=== PATIENT | male | born 2000 | race Caucasian/White ===

== ENCOUNTER 2024-07-10 17:44 | Emergency (ER) | payer OTHER, SELFPAY ==
--- NOTE | ~2024-07-10 | CT_ITS ---
CT abdomen pelvis w con Ordering provider: Dao Pickens MD History: 24 years Male with . Abdominal pain, nausea, constipation x1 day . Comparison: None. Technique: CT abdomen and pelvis with IV and without oral contrast. Automated exposure control and it erative reconstruction technique were employed. The dose-length product was 517.69 mGy-cm. 100 mL Omn ipaque 350 was given IV. Findings: VISUALIZED LOWER CHEST: Normal. UPPER ABDOMINAL ORGANS: Liver: Normal. Gallbladder: Normal. Spleen: Normal. Stomach/duodenum: Normal. Pancreas: Normal. Adrenals: Normal. Kidneys: Normal. PELVIC ORGANS: The bladder is normal. BOWEL AND MESENTERY: Colon: No evidence of diverticulitis. Fecal material is loaded in the colon. Normal appendix. Hyperde nse material seen in the appendix. Small Bowel: Normal. No obstruction. Peritoneum/mesentery: No free air or free fluid. No mesenteric lymphadenopathy. Small mesenteric lymp h nodes are noted. RETROPERITONEUM: Normal aorta. No retroperitoneal lymphadenopathy. MUSCULOSKELETAL: Superficial soft tissues: The superficial soft tissues are normal. Bones: Normal spine. IMPRESSION: 1. No evidence of appendicitis, diverticulitis or intestinal obstruction. 2. Constipation. Reviewed, dictated and finalized at location A.
--- OUTSIDE RECORDS SUMMARY | 2024-07-10 17:47 | XMS_ITS | Encounter Summary ---
Author Organization [facility] Address [address] [place] [address] Care Team Providers Care Healthcare Applications Analyst Name Role Phone Dolly Lima MD Primary Care Provider [phone] Encounter Details Date Type Department Care Team (Late st Contact Info) Description 05/14/2000 Outpatient Historical [facility] Pediatrics [address] [facility] [address] [address] Ip, Hector Holbrook MD NO ADDRESS ON FILE Social History Tobacco Use Types Packs/Day Years Used Date Smoking Tobacco: Never Assessed Sex and Gender Information Value Date Recorded Sex Assigned at Not on file Legal Sex Male 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
--- OUTSIDE RECORDS SUMMARY | 2024-07-10 17:47 | XMS_ITS | Encounter Summary ---
Author Organization [facility] Address [address] [place] [address] Care Team Providers Care Telegraph Installer Name Role Phone Dolly Lima MD Primary Care Provider [phone] Encounter Details Date Type Department Care Team (Late st Contact Info) Description 05/15/2006 Outpatient Historical [facility] Pediatrics [address] [address] [place] [address] [place] [address] Social History Tobacco Use Types Packs/Day Years Used Date Smoking Tobacco: Never Assessed Sex and Gender Information Value Date Recorded Sex Assigned at Not on file Legal Sex Male 3:12 AM MEDIA BUYER Gender Identity Not on file Sexual Orientation Not on file documented as of this encounter Plan of Treatment Not on file documented as of this encounter Visit Diagnoses Not on filedocumented in this encounter Care Teams Telegraph Installer Relationship Specialty Start Date End Date Dolly Lima MD PCP - General 01/26/03 documented as of this encounter
--- OUTSIDE RECORDS SUMMARY | 2024-07-10 17:47 | XMS_ITS | Encounter Summary ---
Author Organization [facility] Address [address] [place] [address] Care Team Providers Care Switch House Operator Name Role Phone Dolly Lima MD Primary Care Provider [phone] Encounter Details Date Type Department Care Team (Late st Contact Info) Description 03/12/2001 Outpatient Historical [facility] Pediatrics 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
--- OUTSIDE RECORDS SUMMARY | 2024-07-10 17:47 | XMS_ITS | Encounter Summary ---
Author Organization [facility] Address [address] [place] [address] Care Team Providers Care Provider Engagement Executive Name Role Phone Dolly Lima MD Primary Care Provider [phone] Encounter Details Date Type Department Care Team (Late st Contact Info) Description 07/02/2002 Outpatient Historical [facility] Pediatric[facility] 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
--- OUTSIDE RECORDS SUMMARY | 2024-07-10 17:47 | XMS_ITS | Encounter Summary ---
Author Organization [facility] Address [address] [place] [address] Care Team Providers Care Technical Support Internship Name Role Phone Dolly Lima MD Primary Care Provider [phone] Encounter Details Date Type Department Care Team (Late st Contact Info) Description 06/06/2001 Outpatient Historical [facility] Pediatrics 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
--- OUTSIDE RECORDS SUMMARY | 2024-07-10 17:47 | XMS_ITS | Encounter Summary ---
Author Organization [facility] Address [address] [place] [address] Care Team Providers Care Cmo & President Name Role Phone Dolly Lima MD Primary Care Provider [phone] Encounter Details Date Type Department Care Team (Late st Contact Info) Description 1999 Outpatient Historical [facility] Pediatrics 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
--- OUTSIDE RECORDS SUMMARY | 2024-07-10 17:47 | XMS_ITS | Clinical Summary ---
Author Organization [address] Address [address] [place] [address] Care Team Providers Care Import Clerk Name Role Phone Dolly Lima MD Primary Care Provider [phone] Allergies No known active allergies Medications fexofenadine (POLO) 180 mg Oral tablet 1 Tab daily. Ac tive mometasone (NASONEX) 50 mcg/actuation Alsen, Non-Aerosol Administer 1 Alsen in each nostril 2 times daily Please keep script on file; parents will call if and when they need to fill. Script expires in one year if not used.. 17 Gram 3 6 Active VENTOLIN HFA 90 mcg/actuation inhaler INHALE TWO PUFFS BY MOUTH EVERY 4 HOURS NEEDED FOR WHEEZING, FOR SHORTNESS OF BREATH, OR COUGH 8.5 Gram 0 6 Active Hospital, Clinic, or Other Facility Administered Medication Ordered Dose Route Frequency Start Date End Date Status ipratropium bromide (ATROVENT) 0.02 % nebulizer solution 0.5 mgIndications:Asth ma, mild intermittent, with acute exacerbation 0.5 mg Inhalation ONE TIME ONLY RESPIRATORY 07/27/2013 Active albuterol (PROVENTIL,VENTOLI N) 5 mg/mL inhalation solution 5 mgIndications:Asth ma, mild intermittent, with acute exacerbation 5 mg Inhalation ONE TIME ONLY RESPIRATORY 07/27/2013 Active Active Problems Patient Care Coordination No te Formatting of this note migh t be different from the original. 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 Also sensitive to maple, elm; grasses, weeds including ragweed, cats (moderate) and dog (mild). Negative to molds, cockroaches and dustmites. LCK 10/2014 Mild intermittent asthma 01/04/2011 Overview (11/11/2014): ImmunoCAP showed severe sensitization towards tree pollens in particular oak, birch, white hickory and walnut tree pollen. Also sensitive to maple, elm; grasses, weeds including ragweed, cats (moderate) and dog (mild). Negative to molds, cockroaches and dustmites. LCK 10/2014 Attention deficit disorder with hyperactivity(31 4.01) 10/05/2009 Overview (10/05/2009): ++ enenrgy, rushes, lack focus, +++ go, impulsive OCD= anger, frustration, need for order, controlling, focus on rules, recalls++++ detail Title I read= no improvement Current FACULTY I ON CALL MEDICAL ASSISTANT Piper Leonardoy selvin Tillman PhD at 6yr 10mg= adjustment do [employer] Child [employer] 2nd gr= central auditory processing do Resolved Problems Problem Noted Date Diagnosed Date Resolved Date Acne 11/09/2014 06/30/2015 Angular cheilitis 11/09/2014 06/30/2015 Overview (11/09/2014): While on isotretinoin (accutane). Immunizations Immunization Administration Dates Next Due (ADACEL/BOOSTRIX)(10 YR UP) TDAP VACCINE, 0.5ML, IM 10/26/2010 (BEXSERO)(10-25 YR) MENINGOC OCCAL RECOMBIANT PROTEIN AND OUTER MEMBRANE VESICLE VACCINE, SEROGROUP B MENB-4C, 2 DOSE IM 11/02/2015 (GARDASIL 9)(9-45 YRS) HUMAN PAPILLOMAVIRUS VACCINE, TYPES 6, 11, 16, 18, 31, 33, 45, 52, 58, NONAVALENT (9VHPV), 2 OR 3 DOSE, IM 11/02/2015 (GARDASIL)(9-45 YRS) HUMAN PAPILLOMAVIRUS VACCINE, TYPES 6, 11, 16, 18, QUADRIVALENT (4VHPV), 3 DOSE, IM 10/28/2014,10/01/2013 (HAVRIX/VAQTA)(12 MO-18 YRS) HEPATITIS A VACCINE 0.5 ML PED/ADOL 2 DOSE, IM 11/02/2015,10/28/2014 (INFANRIX)(6 WKS-6 YRS) DIPT HERIA, TETANUS TOXOIDS, AND ACCELLULAR PERTUSSIS VACCINE (DTAP), 0.5 ML IM 08/21/2004,06/14/2000,1999,07/18,1999 (IPOL)(6 WKS AND UP) POLIOVI FERMIN VACCINE, INACTIVATED (IPV), 3 DOSE, SUBCUT OR IM 08/21/2004,1999,1999,05/16 (M-M-R II/PRIORIX)(12 MO UP) MEASLES, MUMPS AND RUBELLA VIRUS VACCINE, 0.5 ML IM/SUBCUT 08/21/2004,04/08/2000 (VARIVAX)(12 MOS UP)VARICELL A VIRUS VACCINE (PF) 0.5 ML, SUB CUT 11/03/2012,04/08/2000 HIB, Unspecified Formulation 06/14/2000, 1999,1999,05/16 Hepatitis B Vaccine 1999,1999,1999 History of Chickenpox 01/09/2010 INFLUENZA VACCINE QUADRIVALE NT 3 YR UP PF IM 12/22/2014 Influenza Vaccine Split 3+ Yrs IM 01/04/2011 Meningococcal A Conjugate Vaccine IM 11/02/2015, 11/03/2012 Pneumococcal conjugate, unsp ecified formulation 06/14/2000,1999,1999 Family History Medical History Relation Name Comments Heart Disease Maternal Grandfather High Cholesterol Maternal Grandfather Hypertension Maternal Grandfather Lung Cancer Maternal Grandfather d; former smoker Asthma Maternal Grandmother Healthy Maternal Grandmother Allergic Rhinitis Mother Asthma Mother exercise Hypertension Paternal Grandmother COPD Neg Hx Chronic Sinusitis Neg Hx Cystic Fibrosis Neg Hx Eczema Neg Hx Immunodeficiency Neg Hx Relation Name Status Comments Brother Other Father Other Maternal Grandfather Maternal Grandmother Alive Mother Other Paternal Grandfather Other Paternal Grandmother Alive Sister Other Social History Tobacco Use Types Packs/Day Years Used Date Smoking Tobacco: Never Smokeless Tobacco: Never Alcohol Use Standard Drinks/Week Comments No 0 (1 standard drink = 0.6 oz pur e alcohol) Sex and Gender Information Value Date Recorded Sex Assigned at Not on file Legal Sex Male 3:[address] Gender Identity Not on file Sexual Orientation Not on file Occupation Industry Job Start Date Job End Date Not on file Not on file Not on file Not on file Last Filed Vital Signs Vital Sign Reading Time Taken Comments Blood Pressure 117/77 09/06/2016 10:19 AM CDT Pulse 69 09/06/2016 10:19 AM CDT Temperature 36.3 C (97.3 F) 09/06/2016 10:19 AM CDT Respiratory Rate 16 09/06/2016 10:19 AM CDT Oxygen Saturation 98% 09/06/2016 10:19 AM CDT Inhaled Oxygen Concentration - - Weight 70.8 kg (156 lb) 09/06/2016 10:19 AM CDT Height 180.3 cm (5' 11 ) 09/06/2016 10:19 AM CDT Body Mass Index 21.76 09/06/2016 10:19 AM CDT Plan of Treatment Health Maintenance Due Date Last Done Comments DTAP/TDAP/TD VACCINES (7 - T d or Tdap) 10/26/2020 10/26/2010, 08/21/2004, 06/14/2000, Additional history exists INFLUENZA VACCINE (#1) 2023 12/22/2014, 2010 HEPATITIS B VACCINES Completed 1999, 1999, 1999 HPV VACCINES Completed 11/02/2015, 10/16, 10/01/2013 Insurance xmom (Home) [address] BL[address] ACCESS/TRUE BLUE PPO BLUE ACCESS/TRUE BLUE PPO Care Teams Import Clerk Relationship Specialty Start Date End Date Dolly Lima MD PCP - General 01/26/03
--- OUTSIDE RECORDS SUMMARY | 2024-07-10 17:47 | XMS_ITS | Encounter Summary ---
Author Organization [facility] Address [address] [place] [address] Care Team Providers Care Can Sorter Name Role Phone Dolly Lima MD Primary Care Provider [phone] Encounter Details Date Type Department Care Team (Late st Contact Info) Description 08/08/2000 Outpatient Historical [facility] Pediatric[facility] 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
--- OUTSIDE RECORDS SUMMARY | 2024-07-10 17:47 | XMS_ITS | Encounter Summary ---
Author Organization [facility] Address [address] [place] [address] Care Team Providers Care Butcher Helper Name Role Phone Dolly Lima MD Primary Care Provider [phone] Encounter Details Date Type Department Care Team (Late st Contact Info) Description 1999 Outpatient Historical [facility] 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
--- OUTSIDE RECORDS SUMMARY | 2024-07-10 17:47 | XMS_ITS | Encounter Summary ---
Author Organization [facility] Address [address] [place] [address] Care Team Providers Care Quantitative Consultant Name Role Phone Dolly Lima MD Primary Care Provider [phone] Encounter Details Date Type Department Care Team (Late st Contact Info) Description 1999 Outpatient Historical [facility] 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
--- OUTSIDE RECORDS SUMMARY | 2024-07-10 17:47 | XMS_ITS | Encounter Summary ---
Author Organization [facility] Address [address] [place] [address] Care Team Providers Care Tmr Teacher Name Role Phone Dolly Lima MD Primary Care Provider [phone] Encounter Details Date Type Department Care Team (Late st Contact Info) Description 05/03/2004 Outpatient Historical [facility] Pediatrics 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
--- OUTSIDE RECORDS SUMMARY | 2024-07-10 17:47 | XMS_ITS | Encounter Summary ---
Author Organization [facility] Address [address] [place] [address] Care Team Providers Care Cytogeneticist Name Role Phone Dolly Lima MD Primary Care Provider [phone] Encounter Details Date Type Department Care Team (Late st Contact Info) Description 1999 Outpatient Historical [facility] Pediatrics 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
--- OUTSIDE RECORDS SUMMARY | 2024-07-10 17:47 | XMS_ITS | Encounter Summary ---
Author Organization [facility] Address [address] [place] [address] Care Team Providers Care Geospatial Extractor Analysis Name Role Phone Dolly Lima MD Primary Care Provider [phone] Encounter Details Date Type Department Care Team (Late st Contact Info) Description 05/17/2001 Outpatient Historical [facility] Pediatrics [address] [address] [place] [address] [place] [address] Social History Tobacco Use Types Packs/Day Years Used Date Smoking Tobacco: Never Assessed Sex and Gender Information Value Date Recorded Sex Assigned at Not on file Legal Sex Male 3:12 AM SALESPERSON BOOKS Gender Identity Not on file Sexual Orientation Not on file documented as of this encounter Plan of Treatment Not on file documented as of this encounter Visit Diagnoses Not on filedocumented in this encounter Care Teams Geospatial Extractor Analysis Relationship Specialty Start Date End Date Dolly Lima MD PCP - General 01/26/03 documented as of this encounter
--- OUTSIDE RECORDS SUMMARY | 2024-07-10 17:47 | XMS_ITS | Encounter Summary ---
Author Organization [facility] Address [address] [place] [address] Care Team Providers Care Group Cio Name Role Phone Dolly Lima MD Primary Care Provider [phone] Encounter Details Date Type Department Care Team (Late st Contact Info) Description 1999 Outpatient Historical [facility] 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
--- OUTSIDE RECORDS SUMMARY | 2024-07-10 17:47 | XMS_ITS | Encounter Summary ---
Author Organization [facility] Address [address] [place] [address] Care Team Providers Care Dealer Relationship Manager Name Role Phone Dolly Lima MD Primary Care Provider [phone] Encounter Details Date Type Department Care Team (Late st Contact Info) Description 02/13/2003 Outpatient Historical [facility] [address] [address] [place] [address] [place] [address] Social History Tobacco Use Types Packs/Day Years Used Date Smoking Tobacco: Never Assessed Sex and Gender Information Value Date Recorded Sex Assigned at Not on file Legal Sex Male 3:12 AM GEM SETTER Gender Identity Not on file Sexual Orientation Not on file documented as of this encounter Plan of Treatment Not on file documented as of this encounter Visit Diagnoses Not on filedocumented in this encounter Care Teams Dealer Relationship Manager Relationship Specialty Start Date End Date Dolly Lima MD PCP - General 01/26/03 documented as of this encounter
--- OUTSIDE RECORDS SUMMARY | 2024-07-10 17:47 | XMS_ITS | Encounter Summary ---
Author Organization [facility] Address [address] [place] [address] Care Team Providers Care Migratory Worker Name Role Phone Dolly Lima MD Primary Care Provider [phone] Encounter Details Date Type Department Care Team (Late st Contact Info) Description 12/09/2000 Outpatient Historical [facility] Pediatrics [address] [address] [address] Ip, Hector Holbrook MD NO ADDRESS ON FILE Social History Tobacco Use Types Packs/Day Years Used Date Smoking Tobacco: Never Assessed Sex and Gender Information Value Date Recorded Sex Assigned at Not on file Legal Sex Male 3:12 AM MARKETING DEVELOPMENT REPRESENTATIVE Gender Identity Not on file Sexual Orientation Not on file documented as of this encounter Plan of Treatment Not on file documented as of this encounter Visit Diagnoses Not on filedocumented in this encounter Care Teams Migratory Worker Relationship Specialty Start Date End Date Dolly Lima MD PCP - General 01/26/03 documented as of this encounter
--- OUTSIDE RECORDS SUMMARY | 2024-07-10 17:47 | XMS_ITS | Encounter Summary ---
Author Organization [facility] Address [address] [place] [address] Care Team Providers Care Wood Hacker Name Role Phone Dolly Lima MD Primary Care Provider [phone] Encounter Details Date Type Department Care Team (Late st Contact Info) Description 04/24/2000 Outpatient Historical [facility] Pediatrics [address] [address] [place] [address] [place] [address] Social History Tobacco Use Types Packs/Day Years Used Date Smoking Tobacco: Never Assessed Sex and Gender Information Value Date Recorded Sex Assigned at Not on file Legal Sex Male 3:12 AM TIRE RETREADER Gender Identity Not on file Sexual Orientation Not on file documented as of this encounter Plan of Treatment Not on file documented as of this encounter Visit Diagnoses Not on filedocumented in this encounter Care Teams Wood Hacker Relationship Specialty Start Date End Date Dolly Lima MD PCP - General 01/26/03 documented as of this encounter
--- OUTSIDE RECORDS SUMMARY | 2024-07-10 17:47 | XMS_ITS | Encounter Summary ---
Author Organization [facility] Address [address] [place] [address] Care Team Providers Care Hospital Coordinator Name Role Phone Dolly Lima MD Primary Care Provider [phone] Encounter Details Date Type Department Care Team (Late st Contact Info) Description 1999 Outpatient Historical [facility] Pediatrics [address] [address] [place] [address] [place] [address] Social History Tobacco Use Types Packs/Day Years Used Date Smoking Tobacco: Never Assessed Sex and Gender Information Value Date Recorded Sex Assigned at Not on file Legal Sex Male 3:12 AM PATTERN MARKING SUPERVISOR Gender Identity Not on file Sexual Orientation Not on file documented as of this encounter Plan of Treatment Not on file documented as of this encounter Visit Diagnoses Not on filedocumented in this encounter Care Teams Hospital Coordinator Relationship Specialty Start Date End Date Dolly Lima MD PCP - General 01/26/03 documented as of this encounter
--- OUTSIDE RECORDS SUMMARY | 2024-07-10 17:47 | XMS_ITS | Encounter Summary ---
Author Organization [facility] Address [address] [place] [address] Care Team Providers Care Television Servicer Name Role Phone Dolly Lima MD Primary Care Provider [phone] Encounter Details Date Type Department Care Team (Late st Contact Info) Description 1999 Outpatient Historical [facility] Pediatrics 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
--- OUTSIDE RECORDS SUMMARY | 2024-07-10 17:47 | XMS_ITS | Encounter Summary ---
Author Organization [facility] Address [address] [place] [address] Care Team Providers Care Ranch Hand Livestock Name Role Phone Dolly Lima MD Primary Care Provider [phone] Encounter Details Date Type Department Care Team (Latest Contact Info) Description 01/26/2003 Outpatient Historical [facility] [address] [place] [address] PAIN IN LIMB (Primary Dx) Social History Tobacco Use Types Packs/Day Years Used Date Smoking Tobacco: Never Assessed Sex and Gender Information Value Date Recorded Sex Assigned at Not on file Legal Sex Male 3:12 AM SUPERVISOR VARNISH Gender Identity Not on file Sexual Orientation Not on file documented as of this encounter Plan of Treatment Not on file documented as of this encounter Visit Diagnoses Diagnosis Pain in limb- Primary documented in this encounter Care Teams Ranch Hand Livestock Relationship Specialty Start Date End Date Dolly Lima MD PCP - General 01/26/03 documented as of this encounter
--- OUTSIDE RECORDS SUMMARY | 2024-07-10 17:47 | XMS_ITS | Encounter Summary ---
Author Organization [facility] Address [address] [place] [address] Care Team Providers Care Production Assembler Name Role Phone Dolly Lima MD Primary Care Provider [phone] Encounter Details Date Type Department Care Team (Late st Contact Info) Description 06/11/2002 Outpatient Historical [facility] Pediatrics [address] [address] Landen Marley MD NO ADDRESS ON FILE Social History Tobacco Use Types Packs/Day Years Used Date Smoking Tobacco: Never Assessed Sex and Gender Information Value Date Recorded Sex Assigned at Not on file Legal Sex Male 3:12 AM DRYWALL PROFESSIONAL Gender Identity Not on file Sexual Orientation Not on file documented as of this encounter Plan of Treatment Not on file documented as of this encounter Visit Diagnoses Not on filedocumented in this encounter Care Teams Production Assembler Relationship Specialty Start Date End Date Dolly Lima MD PCP - General 01/26/03 documented as of this encounter
--- OUTSIDE RECORDS SUMMARY | 2024-07-10 17:47 | XMS_ITS | Encounter Summary ---
Author Organization [facility] Address [address] [place] [address] Care Team Providers Care Breed To Wean Production Technician Name Role Phone Dolly Lima MD Primary Care Provider [phone] Encounter Details Date Type Department Care Team (Late st Contact Info) Description [address] [facility] Pediatrics 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
--- OUTSIDE RECORDS SUMMARY | 2024-07-10 17:47 | XMS_ITS | Encounter Summary ---
Author Organization [facility] Address [address] [place] [address] Care Team Providers Care Well Digger Name Role Phone Dolly Lima MD Primary Care Provider [phone] Encounter Details Date Type Department Care Team (Late st Contact Info) Description 03/20/2000 Outpatient Historical [facility] Pediatrics [address] [address] [place] [address] [place] [address] Social History Tobacco Use Types Packs/Day Years Used Date Smoking Tobacco: Never Assessed Sex and Gender Information Value Date Recorded Sex Assigned at Not on file Legal Sex Male 3:12 AM STABLEHAND Gender Identity Not on file Sexual Orientation Not on file documented as of this encounter Plan of Treatment Not on file documented as of this encounter Visit Diagnoses Not on filedocumented in this encounter Care Teams Well Digger Relationship Specialty Start Date End Date Dolly Lima MD PCP - General 01/26/03 documented as of this encounter
--- OUTSIDE RECORDS SUMMARY | 2024-07-10 17:47 | XMS_ITS | Encounter Summary ---
Author Organization [facility] Address [address] [place] [address] Care Team Providers Care Roof Cement And Paint Maker Helper Name Role Phone Dolly Lima MD Primary Care Provider [phone] Encounter Details Date Type Department Care Team (Late st Contact Info) Description 12/18/2004 Outpatient Historical [facility] Pediatrics 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
--- OUTSIDE RECORDS SUMMARY | 2024-07-10 17:47 | XMS_ITS | Encounter Summary ---
Author Organization [facility] Address [address] [place] [address] Care Team Providers Care Professor Of Finance Name Role Phone Dolly Lima MD Primary Care Provider [phone] Encounter Details Date Type Department Care Team (Late st Contact Info) Description 08/21/2004 Outpatient Historical [facility] Pediatrics [address] [address] [place] [address] [place] [address] Social History Tobacco Use Types Packs/Day Years Used Date Smoking Tobacco: Never Assessed Sex and Gender Information Value Date Recorded Sex Assigned at Not on file Legal Sex Male 3:12 AM OSTEOPATHIC RESIDENT Gender Identity Not on file Sexual Orientation Not on file documented as of this encounter Plan of Treatment Not on file documented as of this encounter Visit Diagnoses Not on filedocumented in this encounter Care Teams Professor Of Finance Relationship Specialty Start Date End Date Dolly Lima MD PCP - General 01/26/03 documented as of this encounter
--- OUTSIDE RECORDS SUMMARY | 2024-07-10 17:47 | XMS_ITS | Encounter Summary ---
Author Organization [facility] Address [address] [place] [address] Care Team Providers Care Egg Packer Name Role Phone Dolly Lima MD Primary Care Provider [phone] Encounter Details Date Type Department Care Team (Late st Contact Info) Description 09/13/2003 Outpatient Historical [facility] Pediatrics [address] [address] [place] [address] [place] [address] Social History Tobacco Use Types Packs/Day Years Used Date Smoking Tobacco: Never Assessed Sex and Gender Information Value Date Recorded Sex Assigned at Not on file Legal Sex Male 3:12 AM HUMANITIES AND LANGUAGES PROFESSOR Gender Identity Not on file Sexual Orientation Not on file documented as of this encounter Plan of Treatment Not on file documented as of this encounter Visit Diagnoses Not on filedocumented in this encounter Care Teams Egg Packer Relationship Specialty Start Date End Date Dolly Lima MD PCP - General 01/26/03 documented as of this encounter
--- OUTSIDE RECORDS SUMMARY | 2024-07-10 17:47 | XMS_ITS | Encounter Summary ---
Author Organization [facility] Address [address] [place] [address] Care Team Providers Care Cube Machine Tender Name Role Phone Dolly Lima MD Primary Care Provider [phone] Encounter Details Date Type Department Care Team (Late st Contact Info) Description 03/29/2005 Outpatient Historical [facility] Pediatrics [address] [address] [place] [address] [place] [address] Social History Tobacco Use Types Packs/Day Years Used Date Smoking Tobacco: Never Assessed Sex and Gender Information Value Date Recorded Sex Assigned at Not on file Legal Sex Male 3:12 AM COLOR TESTER Gender Identity Not on file Sexual Orientation Not on file documented as of this encounter Plan of Treatment Not on file documented as of this encounter Visit Diagnoses Not on filedocumented in this encounter Care Teams Cube Machine Tender Relationship Specialty Start Date End Date Dolly Lima MD PCP - General 01/26/03 documented as of this encounter
--- OUTSIDE RECORDS SUMMARY | 2024-07-10 17:47 | XMS_ITS | Encounter Summary ---
Author Organization [facility] Address [address] [place] [address] Care Team Providers Care Powder Line Repairer Name Role Phone Dolly Lima MD Primary Care Provider [phone] Encounter Details Date Type Department Care Team (Late st Contact Info) Description 1999 Outpatient Historical [facility] Pediatrics [address] [address] [place] [address] [place] [address] Social History Tobacco Use Types Packs/Day Years Used Date Smoking Tobacco: Never Assessed Sex and Gender Information Value Date Recorded Sex Assigned at Not on file Legal Sex Male 3:12 AM VP CUSTOMER DEVELOPMENT Gender Identity Not on file Sexual Orientation Not on file documented as of this encounter Plan of Treatment Not on file documented as of this encounter Visit Diagnoses Not on filedocumented in this encounter Care Teams Powder Line Repairer Relationship Specialty Start Date End Date Dolly Lima MD PCP - General 01/26/03 documented as of this encounter
--- OUTSIDE RECORDS SUMMARY | 2024-07-10 17:47 | XMS_ITS | Encounter Summary ---
Author Organization [facility] Address [address] [place] [address] Care Team Providers Care Rubber Attacher Name Role Phone Dolly Lima MD Primary Care Provider [phone] Encounter Details Date Type Department Care Team (Late st Contact Info) Description 04/17/2007 Outpatient Historical [facility] [address] [place] [address] [place] [address] [place] [address] Social History Tobacco Use Types Packs/Day Years Used Date Smoking Tobacco: Never Assessed Sex and Gender Information Value Date Recorded Sex Assigned at Not on file Legal Sex Male 3:12 AM CELL STRIPPER Gender Identity Not on file Sexual Orientation Not on file documented as of this encounter Plan of Treatment Not on file documented as of this encounter Visit Diagnoses Not on filedocumented in this encounter Care Teams Rubber Attacher Relationship Specialty Start Date End Date Dolly Lima MD PCP - General 01/26/03 documented as of this encounter
--- OUTSIDE RECORDS SUMMARY | 2024-07-10 17:47 | XMS_ITS | Encounter Summary ---
Author Organization [facility] Address [address] [place] [address] Care Team Providers Care Seafood And Service Meat Manager Name Role Phone Dolly Lima MD Primary Care Provider [phone] Encounter Details Date Type Department Care Team (Late st Contact Info) Description 07/07/2004 Outpatient Historical [facility] Pediatrics [address] [address] [place] [address] [place] [address] Social History Tobacco Use Types Packs/Day Years Used Date Smoking Tobacco: Never Assessed Sex and Gender Information Value Date Recorded Sex Assigned at Not on file Legal Sex Male 3:12 AM SPIRAL TUBE WINDER Gender Identity Not on file Sexual Orientation Not on file documented as of this encounter Plan of Treatment Not on file documented as of this encounter Visit Diagnoses Not on filedocumented in this encounter Care Teams Seafood And Service Meat Manager Relationship Specialty Start Date End Date Dolly Lima MD PCP - General 01/26/03 documented as of this encounter
--- OUTSIDE RECORDS SUMMARY | 2024-07-10 17:47 | XMS_ITS | Encounter Summary ---
Author Organization [facility] Address [address] [place] [address] Care Team Providers Care Physical Education Professor Name Role Phone Dolly Lima MD Primary Care Provider [phone] Encounter Details Date Type Department Care Team (Late st Contact Info) Description 11/29/2004 Outpatient Historical [facility] Pediatrics [address] [address] [place] [address] [place] [address] Social History Tobacco Use Types Packs/Day Years Used Date Smoking Tobacco: Never Assessed Sex and Gender Information Value Date Recorded Sex Assigned at Not on file Legal Sex Male 3:12 AM CARPENTER/LABOR Gender Identity Not on file Sexual Orientation Not on file documented as of this encounter Plan of Treatment Not on file documented as of this encounter Visit Diagnoses Not on filedocumented in this encounter Care Teams Physical Education Professor Relationship Specialty Start Date End Date Dolly Lima MD PCP - General 01/26/03 documented as of this encounter
--- OUTSIDE RECORDS SUMMARY | 2024-07-10 17:47 | XMS_ITS | Encounter Summary ---
Author Organization [facility] Address [address] [place] [address] Care Team Providers Care Preassembler Printed Circuit Board Name Role Phone Dolly Lima MD Primary Care Provider Encounter Details Date Type Department Care Team (Late st Contact Info) Description 01/26/2003 Outpatient Historical [facility] Pediatrics [address] [place] [address] [address] Landen Marley MD NO ADDRESS ON FILE Social History Tobacco Use Types Packs/Day Years Used Date Smoking Tobacco: Never Assessed Sex and Gender Information Value Date Recorded Sex Assigned at Not on file Legal Sex Male 3:12 AM MED PEDS Gender Identity Not on file Sexual Orientation Not on file documented as of this encounter Plan of Treatment Not on file documented as of this encounter Visit Diagnoses Not on filedocumented in this encounter Care Teams Preassembler Printed Circuit Board Relationship Specialty Start Date End Date Dolly Lima MD PCP - General 01/26/03 documented as of this encounter
--- OUTSIDE RECORDS SUMMARY | 2024-07-10 17:47 | XMS_ITS | Encounter Summary ---
Author Organization [facility] Address [address] [place] [address] Care Team Providers Care Service Promoter Salesperson Name Role Phone Dolly Lima MD Primary Care Provider [phone] Encounter Details Date Type Department Care Team (Late st Contact Info) Description 06/02/2001 Outpatient Historical [facility] Pediatrics [address] [address] [place] [address] [place] [address] Social History Tobacco Use Types Packs/Day Years Used Date Smoking Tobacco: Never Assessed Sex and Gender Information Value Date Recorded Sex Assigned at Not on file Legal Sex Male 3:12 AM APPLICATIONS SALES REPRESENTATIVE Gender Identity Not on file Sexual Orientation Not on file documented as of this encounter Plan of Treatment Not on file documented as of this encounter Visit Diagnoses Not on filedocumented in this encounter Care Teams Service Promoter Salesperson Relationship Specialty Start Date End Date Dolly Lima MD PCP - General 01/26/03 documented as of this encounter
--- OUTSIDE RECORDS SUMMARY | 2024-07-10 17:47 | XMS_ITS | Encounter Summary ---
Author Organization [facility] Address [address] [place] [address] Care Team Providers Care Mortgage Loan Closer Name Role Phone Dolly Lima MD Primary Care Provider [phone] Encounter Details Date Type Department Care Team (Late st Contact Info) Description 04/08/2000 Outpatient Historical [facility] Pediatrics [address] [address] [place] [address] [place] [address] Social History Tobacco Use Types Packs/Day Years Used Date Smoking Tobacco: Never Assessed Sex and Gender Information Value Date Recorded Sex Assigned at Not on file Legal Sex Male 3:12 AM SOLUTIONS ENGINEER Gender Identity Not on file Sexual Orientation Not on file documented as of this encounter Plan of Treatment Not on file documented as of this encounter Visit Diagnoses Not on filedocumented in this encounter Care Teams Mortgage Loan Closer Relationship Specialty Start Date End Date Dolly Lima MD PCP - General 01/26/03 documented as of this encounter
--- OUTSIDE RECORDS SUMMARY | 2024-07-10 17:47 | XMS_ITS | Encounter Summary ---
Author Organization [facility] Address [address] [place] [address] Care Team Providers Care Vegetable Sorter Name Role Phone Dolly Lima MD Primary Care Provider [phone] Encounter Details Date Type Department Care Team (Late st Contact Info) Description 10/31/2006 Outpatient Historical [facility] Pediatrics [address] [address] [place] [address] [place] [address] Social History Tobacco Use Types Packs/Day Years Used Date Smoking Tobacco: Never Assessed Sex and Gender Information Value Date Recorded Sex Assigned at Not on file Legal Sex Male 3:12 AM WASHER MACHINE Gender Identity Not on file Sexual Orientation Not on file documented as of this encounter Plan of Treatment Not on file documented as of this encounter Visit Diagnoses Not on filedocumented in this encounter Care Teams Vegetable Sorter Relationship Specialty Start Date End Date Dolly Lima MD PCP - General 01/26/03 documented as of this encounter
--- OUTSIDE RECORDS SUMMARY | 2024-07-10 17:47 | XMS_ITS | Encounter Summary ---
Author Organization [facility] Address [address] [place] [address] Care Team Providers Care Concession Attendant Name Role Phone Dolly Lima MD Primary Care Provider [phone] Encounter Details Date Type Department Care Team (Late st Contact Info) Description 1999 Outpatient Historical [facility] Pediatrics [address] [address] [place] [address] [place] [address] Social History Tobacco Use Types Packs/Day Years Used Date Smoking Tobacco: Never Assessed Sex and Gender Information Value Date Recorded Sex Assigned at Not on file Legal Sex Male 3:12 AM SOUP MIXER Gender Identity Not on file Sexual Orientation Not on file documented as of this encounter Plan of Treatment Not on file documented as of this encounter Visit Diagnoses Not on filedocumented in this encounter Care Teams Concession Attendant Relationship Specialty Start Date End Date Dolly Lima MD PCP - General 01/26/03 documented as of this encounter
--- OUTSIDE RECORDS SUMMARY | 2024-07-10 17:47 | XMS_ITS | Encounter Summary ---
Author Organization [facility] Address [address] [place] [address] Care Team Providers Care Evening Sitter Name Role Phone Dolly Lima MD Primary Care Provider Encounter Details Date Type Department Care Team (Late st Contact Info) Description 08/21/[address] [facility] Pediatrics [address] [address] [place] [address] [place] [address] Social History Tobacco Use Types Packs/Day Years Used Date Smoking Tobacco: Never Assessed Sex and Gender Information Value Date Recorded Sex Assigned at Not on file Legal Sex Male 3:12 AM COOLING PAN TENDER Gender Identity Not on file Sexual Orientation Not on file documented as of this encounter Plan of Treatment Not on file documented as of this encounter Visit Diagnoses Not on filedocumented in this encounter Care Teams Evening Sitter Relationship Specialty Start Date End Date Dolly Lima MD PCP - General 01/26/03 documented as of this encounter
--- OUTSIDE RECORDS SUMMARY | 2024-07-10 17:47 | XMS_ITS | Encounter Summary ---
Author Organization [facility] Address [address] [place] [address] Care Team Providers Care Estate Conservator Name Role Phone Dolly Lima MD Primary Care Provider [phone] Encounter Details Date Type Department Care Team (Late st Contact Info) Description 08/07/2003 Outpatient Historical [facility] Pediatrics [address] [address] Landen Marley MD NO ADDRESS ON FILE Social History Tobacco Use Types Packs/Day Years Used Date Smoking Tobacco: Never Assessed Sex and Gender Information Value Date Recorded Sex Assigned at Not on file Legal Sex Male 3:12 AM BILINGUAL SOCIAL WORKER Gender Identity Not on file Sexual Orientation Not on file documented as of this encounter Plan of Treatment Not on file documented as of this encounter Visit Diagnoses Not on filedocumented in this encounter Care Teams Estate Conservator Relationship Specialty Start Date End Date Dolly Lima MD PCP - General 01/26/03 documented as of this encounter
--- OUTSIDE RECORDS SUMMARY | 2024-07-10 17:47 | XMS_ITS | Encounter Summary ---
Author Organization [facility] Address [address] [place] [address] Care Team Providers Care Grain Elevator Man Name Role Phone Dolly Lima MD Primary Care Provider [phone] Encounter Details Date Type Department Care Team (Late st Contact Info) Description 06/14/2000 Outpatient Historical [facility] Pediatrics [address] [address] [place] [address] [place] [address] Social History Tobacco Use Types Packs/Day Years Used Date Smoking Tobacco: Never Assessed Sex and Gender Information Value Date Recorded Sex Assigned at Not on file Legal Sex Male 3:12 AM SWATCH CLERK Gender Identity Not on file Sexual Orientation Not on file documented as of this encounter Plan of Treatment Not on file documented as of this encounter Visit Diagnoses Not on filedocumented in this encounter Care Teams Grain Elevator Man Relationship Specialty Start Date End Date Dolly Lima MD PCP - General 01/26/03 documented as of this encounter
--- OUTSIDE RECORDS SUMMARY | 2024-07-10 17:47 | XMS_ITS | Encounter Summary ---
Author Organization [facility] Address [address] [place] [address] Care Team Providers Care Recreational Facilities Motel Manager Name Role Phone Dolly Lima MD Primary Care Provider Encounter Details Date Type Department Care Team (Late st Contact Info) Description 06/27/2001 Outpatient Historical [facility] Pediatrics [address] [address] [place] [address] [place] [address] Social History Tobacco Use Types Packs/Day Years Used Date Smoking Tobacco: Never Assessed Sex and Gender Information Value Date Recorded Sex Assigned at Not on file Legal Sex Male 3:12 AM DAIRY MANAGER Gender Identity Not on file Sexual Orientation Not on file documented as of this encounter Plan of Treatment Not on file documented as of this encounter Visit Diagnoses Not on filedocumented in this encounter Care Teams Recreational Facilities Motel Manager Relationship Specialty Start Date End Date Dolly Lima MD PCP - General 01/26/03 documented as of this encounter
--- OUTSIDE RECORDS SUMMARY | 2024-07-10 17:47 | XMS_ITS | Encounter Summary ---
Author Organization [facility] Address [address] [place] [address] Care Team Providers Care Shuttle Repairer Name Role Phone Dolly Lima MD Primary Care Provider [phone] Encounter Details Date Type Department Care Team (Latest Contact Info) Description 04/07/2007 Outpatient Historical [facility] [address] [place] [address] [place] [address] [place] [address] Central Hearing Loss Social History Tobacco Use Types Packs/Day Years Used Date Smoking Tobacco: Never Assessed Sex and Gender Information Value Date Recorded Sex Assigned at Not on file Legal Sex Male 3:12 AM APPARATUS OPERATOR Gender Identity Not on file Sexual Orientation Not on file documented as of this encounter Plan of Treatment Not on file documented as of this encounter Visit Diagnoses Diagnosis Central hearing loss documented in this encounter Care Teams Shuttle Repairer Relationship Specialty Start Date End Date Dolly Lima MD PCP - General 01/26/03 documented as of this encounter
[2024-07-10 17:50] VITALS: BP 122/83; PULSE 123; RESP 18; TEMP 36.6; O2SAT 97
--- NOTE | 2024-07-10 17:51 | ED_ITS ---
HPI - Abdominal Pain General Chief Complaint: Abdominal Pain Stated Complaint: abdominal pain Time Seen by Provider: 07/10/24 17:51 Source: patient Mode of arrival: ambulatory Limitations: no limitations History of Present Illness HPI narrative: Patient is a 24-year-old male with diffuse and more so upper abdomen abdominal pain for the past day. He has associated nausea without vomiting. He had a normal bowel movement yesterday and prior days. No BM today. Pain is a dull nagging constant pain. He has 6/10 pain. MD elicited complaint: abdominal pain Pertinent past history: none Onset (ago): day(s) ( One) Pain Consistency: constant Location: diffuse and epigastric Severity: moderate Pain scale (0-10): 6 Quality: fullness and dull Radiation: none Migration to: no migration Exacerbating factors: nothing Relieving factors: nothing Context: confirms other ( patient having nausea with abdominal pain for the past day) Associated symptoms: nausea Treatments prior to arrival: other ( none) Related Data Allergies Allergy/AdvReac Type Severity Reaction Status Date / Time No Known Allergies Allergy Mild Verified 02/09/09 16:49 Review of Systems 2 Review of Systems: All systems reviewed & are unremarkable except as noted in HPI and below Constitutional: Constitutional: Reports no additional constitutional complaints Eyes: Eyes: Reports no additional eye complaints ENT: Reports system reviewed and no additional complaints, except as documented Cardiovascular: Cardiovascular: Reports no additional cardiovascular complaints Respiratory: Respiratory: Reports no additional respiratory complaints Gastrointestinal: Gastrointestinal: Reports no additional gastrointestinal complaints Genitourinary: Genitourinary: Reports no additional male genitourinary complaints Musculoskeletal: Musculoskeletal: Reports no additional musculoskeletal complaints Integumentary/Breasts: Skin/Breast: Reports system reviewed and no additional complaints, except as docu Neurologic: Reports system reviewed and no additional complaints, except as documented Psychiatric: Psychiatric: Reports no additional psychiatric complaints Endocrine: Endocrine: Reports no additional endocrine complaints Hematologic/Lymphatic: Hematologic/Lymphatic: Reports no additional hematologic/lymphatic complaints Allergic/Immunologic: Allergic/Immunologic: Reports no additional allergic/immunologic complaints Exam 2 Const: General: healthy appearing Nutritional Appearance: well nourished Orientation/consciousness: patient oriented x3 Limitations: no limitations HENMT: Head: normal to inspection Ears: external ears normal F rehana/Nose/Sinus: Normal external nose present Eyes: Conjunctivae: conjunctivae normal Pupils: Equal, round and reactive pupils present EOM: EOMs intact bilaterally Neck: Neck: normal visual inspection Chest: Chest palpation & inspection: normal inspection of the chest Resp: Effort & Inspection: normal respiratory effort and not labored A uscultation: clear to auscultation bilaterally and no crackles Cardio: Rate: regular rate Rhythm: regular rhythm Heart sounds: no murmurs GI: Inspection: non-distended GI Palp: Yes Soft to palpation, Yes Tenderness to palpation present (GI) ( diffuse and upper epigastric area), Yes Guarding due to palpation present (GI), No Rigid due to palpation, No Hernia present, No Palpable mass present and No Rebound tenderness present A uscultation: normal bowel sounds : General: Yes bladder normal to palpation Back/Spine/Pelvis: Back: no CVA tenderness Skin: General skin exam: normal color Rashes: no rashes Wounds: no wounds Neuro: General: patient oriented x3 Cranial nerves: Yes Nystagmus not present Speech: normal speech Gait exam (Neuro): Normal gait present Extrem: General: normal to inspection Psych: Mental Status: mental status grossly normal Affect: normal affect Attitude: cooperative Course Vital Signs Vital signs: Vital Signs Temperature 36.6 C 07/10/24 17:50 Pulse Rate 123 H 07/10/24 17:50 Respiratory Rate 18 07/10/24 17:50 Blood Pressure 122/83 07/10/24 17:50 Pulse Oximetry 97 07/10/24 17:50 Oxygen Delivery Room Air 07/10/24 17:50 Temperature 36.6 C 07/10/24 17:50 Pulse Rate 100 07/10/24 19:07 Respiratory Rate 20 07/10/24 19:07 Blood Pressure 126/83 07/10/24 19:07 Pulse Oximetry 97 07/10/24 19:07 Oxygen Delivery Room Air 07/10/24 19:07 MDM - Abdominal Pain MDM Narrative Medical decision making narrative: patient is a 24-year-old male with nausea and abdominal pain for the past day. We will do GI workup at this time. Lab Data Attestation: I reviewed the patient's lab results. 07/10/24 18:13 07/10/24 18:13 Labs: Lab Results 07/10/24 Range/Units 18:13 WBC 6.8 (4.8-10.8) K/mm3 RBC 5.23 (4.70-6.10) M/mm3 Hgb 15.0 (14.0-18.0) g/dL Hct 45.9 (40.0-54.0) % MCV 87.8 (78.0-102.0) fL MCH 28.7 (27.0-31.0) pg MCHC 32.7 (32-36) g/dL RDW 12.1 (11.6-14.4) % Plt Count 201 (150-420) K/mm3 MPV 10.8 (8.7-11.0) fl Immature Gran % (Auto) Not Reportable Neut % (Auto) Not Reportable Lymph % (Auto) Not Reportable Swisher % (Auto) Not Reportable Eos % (Auto) Not Reportable Baso % (Auto) Not Reportable Lymph # (Auto) Not Reportable Swisher # (Auto) Not Reportable Eos # (Auto) Not Reportable Baso # (Auto) Not Reportable Abs Immat Gran (auto) Not Reportable Absolute Neuts (auto) Not Reportable Absolute Nucleated RBC Not Reportable Total Counted 100 Neutrophils % (Manual) 56 (46-73) % Band Neutrophils % 15 H (0-6) % Lymphocytes % (Manual) 18 (18-44) % Monocytes % (Manual) 11 H (3-9) % Eosinophils % (Manual) 0 L (1-6) % Basophils % (Manual) 0 (0-1) % Nucleated RBC % Not Reportable Abs Neuts (Manual) 4.82 (1.3-6.7) K/mm3 Abs Lymphs (Manual) 1.22 (1.1-4.5) K/mm3 Abs Monocytes (Manual) 0.74 (0.1-0.90) K/mm3 Absolute Eos (Manual) 0.00 L (0.02-0.50) K/mm3 Abs Basophils (Manual) 0.00 (0-0.1) K/mm3 Platelet Estimate Adequate (Adequate) Schistocytes Not Reportable Sodium 141 (136-145) mmol/L Potassium 3.5 (3.5-5.1) mmol/L Chloride 104 (98-108) mmol/L Carbon Dioxide 26 (21-32) mmol/L Anion Gap 11 (4-12) mmol/L BUN 18 (7-18) mg/dL Creatinine 1.34 H (0.70-1.30) mg/dL Estim Creat Clear Calc 83 ml/min Estimated GFR > 60 (59 - ) Glucose 98 (70-99) mg/dL Calculated Osmolality 293 (285-295) mOsm/kg Lactic Acid 0.9 (0.4-2.0) mmol/L Calcium 8.3 L (8.5-10.1) mg/dL Total Bilirubin 0.8 (0.00-1.00) mg/dL AST 20 (15-37) U/L ALT 35 (16-63) U/L Alkaline Phosphatase 66 (46-116) U/L Total Protein 7.4 (6.4-8.2) g/dL Albumin 3.7 (3.4-5.0) g/dL Lipase 28 (16-77) U/L Imaging Data Attestation: I personally reviewed and interpreted this imaging study as follows: Radiologist's impression: ITS Impressions Abdomen/Pelvis CT 07/10/24 19:08 IMPRESSION: 1. No evidence of appendicitis, diverticulitis or intestinal obstruction. 2. Constipation. Discharge Plan Discharge Clinical Impression: Constipation Qualifiers: Constipation type: unspecified constipation type Qualified Code(s): K59.00 - Constipation, unspecified Patient Disposition: Home Condition: Stable Instructions: Constipation (DC) Additional Instructions: please follow-up with the primary doctor in the next week. I suggest using MiraLax daily. I also suggest a magnesium citrate for acute constipation until resolution. It usually only takes a half a bottle to a full bottle to resolve constipation. Patient Language: Slovenian Follow-up/Referrals: Abundio Rizo MD [Primary Care Provider] - Time of Disposition: 19:22
--- NOTE | 2024-07-10 18:05 | PC.NURSE ---
dr wiley in with pt
--- OUTSIDE RECORDS SUMMARY | 2024-07-10 18:19 | XMS_ITS | Encounter Summary ---
Author Organization [facility] Address [address] [place] [address] Care Team Providers Care Loader Malt House Name Role Phone Dolly Lima MD Primary Care Provider [phone] Encounter Details Date Type Department Care Team (Late st Contact Info) Description 12/18/2004 Outpatient Historical [facility] Pediatrics 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
--- OUTSIDE RECORDS SUMMARY | 2024-07-10 18:19 | XMS_ITS | Encounter Summary ---
Author Organization [facility] Address [address] [place] [address] Care Team Providers Care Appliance Tester Name Role Phone Dolly Lima MD Primary Care Provider [phone] Encounter Details Date Type Department Care Team (Late st Contact Info) Description 03/29/2005 Outpatient Historical [facility] Pediatrics 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
--- OUTSIDE RECORDS SUMMARY | 2024-07-10 18:19 | XMS_ITS | Encounter Summary ---
Author Organization [facility] Address [address] [place] [address] Care Team Providers Care Tobacco Stripper Hand Name Role Phone Dolly Lima MD Primary Care Provider [phone] Encounter Details Date Type Department Care Team (Late st Contact Info) Description 08/21/2004 Outpatient Historical [facility] Pediatrics 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
--- OUTSIDE RECORDS SUMMARY | 2024-07-10 18:19 | XMS_ITS | Encounter Summary ---
Author Organization [facility] Address [address] [place] [address] Care Team Providers Care Closing Manager Name Role Phone Dolly Lima MD Primary Care Provider [phone] Encounter Details Date Type Department Care Team (Latest Contact Info) Description 04/07/2007 Outpatient Historical [facility] [address] 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
--- OUTSIDE RECORDS SUMMARY | 2024-07-10 18:19 | XMS_ITS | Encounter Summary ---
Author Organization [facility] Address [address] [place] [address] Care Team Providers Care Coding Manager Name Role Phone Dolly Lima MD Primary Care Provider Encounter Details Date Type Department Care Team (Late st Contact Info) Description 10/31/2006 Outpatient Historical [facility] Pediatrics 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
--- OUTSIDE RECORDS SUMMARY | 2024-07-10 18:19 | XMS_ITS | Encounter Summary ---
Author Organization [facility] Address [address] [place] [address] Care Team Providers Care Life Skills Coordinator Volunteer Name Role Phone Dolly Lima MD Primary Care Provider [phone] Encounter Details Date Type Department Care Team (Late st Contact Info) Description 05/03/2004 Outpatient Historical [facility] Pediatrics 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
--- OUTSIDE RECORDS SUMMARY | 2024-07-10 18:19 | XMS_ITS | Encounter Summary ---
Author Organization [facility] Address [address] [place] [address] Care Team Providers Care Interface Analyst Name Role Phone Dolly Lima MD Primary Care Provider [phone] Encounter Details Date Type Department Care Team (Late st Contact Info) Description 11/29/[address] [facility] Pediatrics 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
--- OUTSIDE RECORDS SUMMARY | 2024-07-10 18:19 | XMS_ITS | Encounter Summary ---
Author Organization [facility] Address [address] [place] [address] Care Team Providers Care Multiple Drill Operator Name Role Phone Dolly Lima MD Primary Care Provider [phone] Encounter Details Date Type Department Care Team (Late st Contact Info) Description 05/15/2006 Outpatient Historical [facility] Pediatrics 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
--- OUTSIDE RECORDS SUMMARY | 2024-07-10 18:19 | XMS_ITS | Encounter Summary ---
Author Organization [facility] Address [address] [place] [address] Care Team Providers Care Liquor Establishment Manager Name Role Phone Dolly Lima MD Primary Care Provider [phone] Encounter Details Date Type Department Care Team (Late st Contact Info) Description 08/21/2004 Outpatient Historical [facility] Pediatrics 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
--- OUTSIDE RECORDS SUMMARY | 2024-07-10 18:20 | XMS_ITS | Encounter Summary ---
Author Organization [facility] Address 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
--- OUTSIDE RECORDS SUMMARY | 2024-07-10 18:20 | XMS_ITS | Clinical Summary ---
Author Organization [address] Address [address] [facility] [place] [address] Care Team Providers Care Fine Patcher Name Role Phone Dolly Lima MD Primary Care Provider [phone] Allergies No known active allergies Medications fexofenadine (POLO) 180 mg Oral tablet 1 Tab daily. 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
--- OUTSIDE RECORDS SUMMARY | 2024-07-10 18:20 | XMS_ITS | Encounter Summary ---
Author Organization [facility] Address [address] [place] [address] Care Team Providers Care Steamblaster Name Role Phone Dolly Lima MD Primary Care Provider [phone] Encounter Details Date Type Department Care Team (Late st Contact Info) Description 06/11/2002 Outpatient Historical [facility] Pediatrics [address] [address] Landen Marley MD NO ADDRESS ON FILE Social History Tobacco Use Types Packs/Day Years Used Date Smoking Tobacco: Never Assessed Sex and Gender Information Value Date Recorded Sex Assigned at Not on file Legal Sex Male 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
--- OUTSIDE RECORDS SUMMARY | 2024-07-10 18:20 | XMS_ITS | Encounter Summary ---
Author Organization [facility] Address [address] [place] [address] Care Team Providers Care Ibm Websphere Portal Developer Name Role Phone Dolly Lima MD Primary Care Provider [phone] Encounter Details Date Type Department Care Team (Late st Contact Info) Description 04/17/2007 Outpatient Historical [facility] [address] 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
--- OUTSIDE RECORDS SUMMARY | 2024-07-10 18:20 | XMS_ITS | Encounter Summary ---
Author Organization [facility] Address [address] [place] [address] Care Team Providers Care Stress Engineer Name Role Phone Dolly Lima MD Primary Care Provider [phone] Encounter Details Date Type Department Care Team (Late st Contact Info) Description 04/08/2000 Outpatient Historical [facility] Pediatrics 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
--- OUTSIDE RECORDS SUMMARY | 2024-07-10 18:20 | XMS_ITS | Encounter Summary ---
Author Organization [facility] Address 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
--- OUTSIDE RECORDS SUMMARY | 2024-07-10 18:20 | XMS_ITS | Encounter Summary ---
Author Organization [facility] Address [address] [place] [address] Care Team Providers Care Program Manager Slp Name Role Phone Dolly Lima MD Primary Care Provider [phone] Encounter Details Date Type Department Care Team (Late st Contact Info) Description 1999 Outpatient Historical [facility] Pediatrics 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
--- OUTSIDE RECORDS SUMMARY | 2024-07-10 18:20 | XMS_ITS | Encounter Summary ---
Author Organization [facility] Address [address] [place] [address] Care Team Providers Care Music Educator Name Role Phone Dolly Lima MD Primary Care Provider Encounter Details Date Type Department Care Team (Late st Contact Info) Description 1999 Outpatient Historical [facility] Pediatrics [address] [address] [place] [address] [place] [address] Social History Tobacco Use Types Packs/Day Years Used Date Smoking Tobacco: Never Assessed Sex and Gender Information Value Date Recorded Sex Assigned at Not on file Legal Sex Male 3:12 AM FUSE MAKER Gender Identity Not on file Sexual Orientation Not on file documented as of this encounter Plan of Treatment Not on file documented as of this encounter Visit Diagnoses Not on filedocumented in this encounter Care Teams Music Educator Relationship Specialty Start Date End Date Dolly Lima MD PCP - General 01/26/03 documented as of this encounter
--- OUTSIDE RECORDS SUMMARY | 2024-07-10 18:20 | XMS_ITS | Encounter Summary ---
Author Organization [facility] Address [address] [place] [address] Care Team Providers Care Motor Coach Tour Operator Name Role Phone Dolly Lima MD Primary Care Provider [phone] Encounter Details Date Type Department Care Team (Late st Contact Info) Description 1999 Outpatient Historical [facility] Pediatrics 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
--- OUTSIDE RECORDS SUMMARY | 2024-07-10 18:20 | XMS_ITS | Encounter Summary ---
Author Organization [facility] Address [address] [place] [address] Care Team Providers Care Glove Examiner Name Role Phone Dolly Lima MD Primary Care Provider [phone] Encounter Details Date Type Department Care Team (Late st Contact Info) Description 02/13/2003 Outpatient Historical [facility] Pediatrics 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
--- OUTSIDE RECORDS SUMMARY | 2024-07-10 18:20 | XMS_ITS | Encounter Summary ---
Author Organization [facility] Address [address] [place] [address] Care Team Providers Care Spa Supervisor Name Role Phone Dolly Lima MD Primary Care Provider [phone] Encounter Details Date Type Department Care Team (Late st Contact Info) Description 1999 Outpatient Historical [facility] Pediatrics [address] [address] [place] [address] [place] [address] Social History Tobacco Use Types Packs/Day Years Used Date Smoking Tobacco: Never Assessed Sex and Gender Information Value Date Recorded Sex Assigned at Not on file Legal Sex Male 3:12 AM TOW MATE Gender Identity Not on file Sexual Orientation Not on file documented as of this encounter Plan of Treatment Not on file documented as of this encounter Visit Diagnoses Not on filedocumented in this encounter Care Teams Spa Supervisor Relationship Specialty Start Date End Date Dolly Lima MD PCP - General 01/26/03 documented as of this encounter
--- OUTSIDE RECORDS SUMMARY | 2024-07-10 18:20 | XMS_ITS | Encounter Summary ---
Author Organization [facility] Address [address] [place] [address] Care Team Providers Care Fisher Eel Spear Name Role Phone Dolly Lima MD Primary Care Provider [phone] Encounter Details Date Type Department Care Team (Latest Contact Info) Description 01/26/2003 Outpatient Historical [facility] [place] [address] [place] [address] PAIN IN LIMB (Primary Dx) Social History Tobacco Use Types Packs/Day Years Used Date Smoking Tobacco: Never Assessed Sex and Gender Information Value Date Recorded Sex Assigned at Not on file Legal Sex Male 3:12 AM APARTMENT RENTAL AGENT Gender Identity Not on file Sexual Orientation Not on file documented as of this encounter Plan of Treatment Not on file documented as of this encounter Visit Diagnoses Diagnosis Pain in limb- Primary documented in this encounter Care Teams Fisher Eel Spear Relationship Specialty Start Date End Date Dolly Lima MD PCP - General 01/26/03 documented as of this encounter
--- OUTSIDE RECORDS SUMMARY | 2024-07-10 18:20 | XMS_ITS | Encounter Summary ---
Author Organization [facility] Address [address] [place] [address] Care Team Providers Care Fur Repairer Name Role Phone Dolly Lima MD Primary Care Provider [phone] Encounter Details Date Type Department Care Team (Late st Contact Info) Description 06/14/2000 Outpatient Historical [facility] Pediatrics 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
--- OUTSIDE RECORDS SUMMARY | 2024-07-10 18:20 | XMS_ITS | Encounter Summary ---
Author Organization [facility] Address [address] [place] [address] Care Team Providers Care Chain Saw Operator Name Role Phone Dolly Lima MD Primary Care Provider [phone] Encounter Details Date Type Department Care Team (Late st Contact Info) Description 05/14/2000 Outpatient Historical [facility] Pediatrics [address] [address] Ip, Hector Holbrook MD NO ADDRESS ON FILE Social History Tobacco Use Types Packs/Day Years Used Date Smoking Tobacco: Never Assessed Sex and Gender Information Value Date Recorded Sex Assigned at Not on file Legal Sex Male 3:12 AM BOILER TUBE REAMER Gender Identity Not on file Sexual Orientation Not on file documented as of this encounter Plan of Treatment Not on file documented as of this encounter Visit Diagnoses Not on filedocumented in this encounter Care Teams Chain Saw Operator Relationship Specialty Start Date End Date Dolly Lima MD PCP - General 01/26/03 documented as of this encounter
--- OUTSIDE RECORDS SUMMARY | 2024-07-10 18:20 | XMS_ITS | Encounter Summary ---
Author Organization [facility] Address [address] [place] [address] Care Team Providers Care Train Driver Name Role Phone Dolly Lima MD Primary Care Provider [phone] Encounter Details Date Type Department Care Team (Late st Contact Info) Description 06/02/2001 Outpatient Historical [facility] Pediatrics 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
--- OUTSIDE RECORDS SUMMARY | 2024-07-10 18:20 | XMS_ITS | Encounter Summary ---
Author Organization [facility] Address [address] [place] [address] Care Team Providers Care Client Care Manager Name Role Phone Dolly Lima MD Primary Care Provider [phone] Encounter Details Date Type Department Care Team (Late st Contact Info) Description 07/07/2004 Outpatient Historical [facility] Pediatrics 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
--- OUTSIDE RECORDS SUMMARY | 2024-07-10 18:20 | XMS_ITS | Encounter Summary ---
Author Organization [facility] Address [address] [place] [address] Care Team Providers Care Stained Glass Window Designer Name Role Phone Dolly Lima MD Primary Care Provider [phone] Encounter Details Date Type Department Care Team (Late st Contact Info) Description 05/17/2001 Outpatient Historical [facility] Pediatrics [address] [address] [place] [address] [place] [address] Social History Tobacco Use Types Packs/Day Years Used Date Smoking Tobacco: Never Assessed Sex and Gender Information Value Date Recorded Sex Assigned at Not on file Legal Sex Male 3:12 AM BUILDING WRECKER Gender Identity Not on file Sexual Orientation Not on file documented as of this encounter Plan of Treatment Not on file documented as of this encounter Visit Diagnoses Not on filedocumented in this encounter Care Teams Stained Glass Window Designer Relationship Specialty Start Date End Date Dolly Lima MD PCP - General 01/26/03 documented as of this encounter
--- OUTSIDE RECORDS SUMMARY | 2024-07-10 18:20 | XMS_ITS | Encounter Summary ---
Author Organization [facility] Address [address] [place] [address] Care Team Providers Care Black Oxide Operator Name Role Phone Dolly Lima MD Primary Care Provider [phone] Encounter Details Date Type Department Care Team (Late st Contact Info) Description 1999 Outpatient Historical [facility] Pediatric[facility] [address] [address] [place] [address] [place] [address] Social History Tobacco Use Types Packs/Day Years Used Date Smoking Tobacco: Never Assessed Sex and Gender Information Value Date Recorded Sex Assigned at Not on file Legal Sex Male 3:12 AM LARRY CAR OPERATOR Gender Identity Not on file Sexual Orientation Not on file documented as of this encounter Plan of Treatment Not on file documented as of this encounter Visit Diagnoses Not on filedocumented in this encounter Care Teams Black Oxide Operator Relationship Specialty Start Date End Date Dolly Lima MD PCP - General 01/26/03 documented as of this encounter
--- OUTSIDE RECORDS SUMMARY | 2024-07-10 18:20 | XMS_ITS | Encounter Summary ---
Author Organization [facility] Address [address] [place] [address] Care Team Providers Care Cream Hauler Name Role Phone Dolly Lima MD Primary Care Provider [phone] Encounter Details Date Type Department Care Team (Late st Contact Info) Description 1999 Outpatient Historical [facility] Pediatrics [address] [address] [place] [address] [place] [address] Social History Tobacco Use Types Packs/Day Years Used Date Smoking Tobacco: Never Assessed Sex and Gender Information Value Date Recorded Sex Assigned at Not on file Legal Sex Male 3:12 AM DINING ROOM HOSTESS Gender Identity Not on file Sexual Orientation Not on file documented as of this encounter Plan of Treatment Not on file documented as of this encounter Visit Diagnoses Not on filedocumented in this encounter Care Teams Cream Hauler Relationship Specialty Start Date End Date Dolly Lima MD PCP - General 01/26/03 documented as of this encounter
--- OUTSIDE RECORDS SUMMARY | 2024-07-10 18:20 | XMS_ITS | Encounter Summary ---
Author Organization [facility] Address [address] [place] [address] Care Team Providers Care Ring Sewer Name Role Phone Dolly Lima MD Primary Care Provider [phone] Encounter Details Date Type Department Care Team (Late st Contact Info) Description 07/02/2002 Outpatient Historical [facility] Pediatrics [address] [address] [place] [address] [place] [address] Social History Tobacco Use Types Packs/Day Years Used Date Smoking Tobacco: Never Assessed Sex and Gender Information Value Date Recorded Sex Assigned at Not on file Legal Sex Male 3:12 AM BOTTOM PAINTER Gender Identity Not on file Sexual Orientation Not on file documented as of this encounter Plan of Treatment Not on file documented as of this encounter Visit Diagnoses Not on filedocumented in this encounter Care Teams Ring Sewer Relationship Specialty Start Date End Date Dolly Lima MD PCP - General 01/26/03 documented as of this encounter
--- OUTSIDE RECORDS SUMMARY | 2024-07-10 18:20 | XMS_ITS | Encounter Summary ---
Author Organization [facility] Address [address] [place] [address] Care Team Providers Care Wire Dropper Name Role Phone Dolly Lima MD Primary Care Provider [phone] Encounter Details Date Type Department Care Team (Late st Contact Info) Description 09/13/2003 Outpatient Historical [facility] Pediatrics [address] [address] [place] [address] [place] [address] Social History Tobacco Use Types Packs/Day Years Used Date Smoking Tobacco: Never Assessed Sex and Gender Information Value Date Recorded Sex Assigned at Not on file Legal Sex Male 3:12 AM DIP FILLER Gender Identity Not on file Sexual Orientation Not on file documented as of this encounter Plan of Treatment Not on file documented as of this encounter Visit Diagnoses Not on filedocumented in this encounter Care Teams Wire Dropper Relationship Specialty Start Date End Date Dolly Lima MD PCP - General 01/26/03 documented as of this encounter
--- OUTSIDE RECORDS SUMMARY | 2024-07-10 18:20 | XMS_ITS | Encounter Summary ---
Author Organization [facility] Address [address] [place] [address] Care Team Providers Care Public Works Commissioner Name Role Phone Dolly Lima MD Primary Care Provider [phone] Encounter Details Date Type Department Care Team (Late st Contact Info) Description 04/24/2000 Outpatient Historical [facility] Pediatrics [address] [address] [place] [address] [place] [address] Social History Tobacco Use Types Packs/Day Years Used Date Smoking Tobacco: Never Assessed Sex and Gender Information Value Date Recorded Sex Assigned at Not on file Legal Sex Male 3:12 AM DIVEMASTER Gender Identity Not on file Sexual Orientation Not on file documented as of this encounter Plan of Treatment Not on file documented as of this encounter Visit Diagnoses Not on filedocumented in this encounter Care Teams Public Works Commissioner Relationship Specialty Start Date End Date Dolly Lima MD PCP - General 01/26/03 documented as of this encounter
--- OUTSIDE RECORDS SUMMARY | 2024-07-10 18:20 | XMS_ITS | Encounter Summary ---
Author Organization [facility] Address [address] [place] [address] Care Team Providers Care Pigment Pusher Name Role Phone Dolly Lima MD Primary Care Provider [phone] Encounter Details Date Type Department Care Team (Late st Contact Info) Description 2003 Outpatient Historical [facility] Pediatrics 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
--- OUTSIDE RECORDS SUMMARY | 2024-07-10 18:20 | XMS_ITS | Encounter Summary ---
Author Organization [facility] Address [address] [place] [address] Care Team Providers Care Tool Filer Name Role Phone Dolly Lima MD Primary Care Provider [phone] Encounter Details Date Type Department Care Team (Late st Contact Info) Description 03/20/2000 Outpatient Historical [facility] Pediatrics [address] [address] [place] [address] [place] [address] Social History Tobacco Use Types Packs/Day Years Used Date Smoking Tobacco: Never Assessed Sex and Gender Information Value Date Recorded Sex Assigned at Not on file Legal Sex Male 3:12 AM MARBLE COPER Gender Identity Not on file Sexual Orientation Not on file documented as of this encounter Plan of Treatment Not on file documented as of this encounter Visit Diagnoses Not on filedocumented in this encounter Care Teams Tool Filer Relationship Specialty Start Date End Date Dolly Lima MD PCP - General 01/26/03 documented as of this encounter
--- OUTSIDE RECORDS SUMMARY | 2024-07-10 18:20 | XMS_ITS | Encounter Summary ---
Author Organization [facility] Address [address] [place] [address] Care Team Providers Care Cableman Name Role Phone Dolly Lima MD Primary Care Provider [phone] Encounter Details Date Type Department Care Team (Late st Contact Info) Description 06/06/2001 Outpatient Historical [facility] Pediatrics 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
--- OUTSIDE RECORDS SUMMARY | 2024-07-10 18:20 | XMS_ITS | Encounter Summary ---
Author Organization [facility] Address [address] [place] [address] Care Team Providers Care Electrician Manager Name Role Phone Dolly Lima MD Primary Care Provider [phone] Encounter Details Date Type Department Care Team (Late st Contact Info) Description 06/27/2001 Outpatient Historical [facility] Pediatrics [address] [address] [place] [address] [place] [address] Social History Tobacco Use Types Packs/Day Years Used Date Smoking Tobacco: Never Assessed Sex and Gender Information Value Date Recorded Sex Assigned at Not on file Legal Sex Male 3:12 AM COUNCILLOR AB[employer]IN[employer]IL Gender Identity Not on file Sexual Orientation Not on file documented as of this encounter Plan of Treatment Not on file documented as of this encounter Visit Diagnoses Not on filedocumented in this encounter Care Teams Electrician Manager Relationship Specialty Start Date End Date Dolly Lima MD PCP - General 01/26/03 documented as of this encounter
--- OUTSIDE RECORDS SUMMARY | 2024-07-10 18:20 | XMS_ITS | Encounter Summary ---
Author Organization [facility] Address [address] [place] [address] Care Team Providers Care Seafood Packer Name Role Phone Dolly Lima MD Primary Care Provider [phone] Encounter Details Date Type Department Care Team (Late st Contact Info) Description 03/12/2001 Outpatient Historical [facility] Pediatrics [address] [address] [place] [address] [place] [address] Social History Tobacco Use Types Packs/Day Years Used Date Smoking Tobacco: Never Assessed Sex and Gender Information Value Date Recorded Sex Assigned at Not on file Legal Sex Male 3:12 AM PAINT TRIMMER PIPE BOWLS Gender Identity Not on file Sexual Orientation Not on file documented as of this encounter Plan of Treatment Not on file documented as of this encounter Visit Diagnoses Not on filedocumented in this encounter Care Teams Seafood Packer Relationship Specialty Start Date End Date Dolly Lima MD PCP - General 01/26/03 documented as of this encounter
--- OUTSIDE RECORDS SUMMARY | 2024-07-10 18:20 | XMS_ITS | Encounter Summary ---
Author Organization [facility] Address [address] [place] [address] Care Team Providers Care Dog And Cat Food Cook Name Role Phone Dolly Lima MD Primary Care Provider [phone] Encounter Details Date Type Department Care Team (Late st Contact Info) Description 1999 Outpatient Historical [facility] Pediatrics [address] [address] [place] [address] [place] [address] Social History Tobacco Use Types Packs/Day Years Used Date Smoking Tobacco: Never Assessed Sex and Gender Information Value Date Recorded Sex Assigned at Not on file Legal Sex Male 3:12 AM EXECUTIVE PRODUCER PROMOS Gender Identity Not on file Sexual Orientation Not on file documented as of this encounter Plan of Treatment Not on file documented as of this encounter Visit Diagnoses Not on filedocumented in this encounter Care Teams Dog And Cat Food Cook Relationship Specialty Start Date End Date Dolly Lima MD PCP - General 01/26/03 documented as of this encounter
--- OUTSIDE RECORDS SUMMARY | 2024-07-10 18:20 | XMS_ITS | Encounter Summary ---
Author Organization [facility] Address [address] [place] [address] Care Team Providers Care Graphic Designer Name Role Phone Dolly Lmia MD Primary Care Provider [phone] Encounter Details Date Type Department Care Team (Late st Contact Info) Description 1999 Outpatient Historical [facility] Pediatrics 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
--- OUTSIDE RECORDS SUMMARY | 2024-07-10 18:20 | XMS_ITS | Encounter Summary ---
Author Organization [facility] Address [address] [place] [address] Care Team Providers Care Hat Marker Name Role Phone Dolly Lima MD Primary Care Provider [phone] Encounter Details Date Type Department Care Team (Late st Contact Info) Description 1999 Outpatient Historical [facility] Pediatrics [address] [address] [place] [address] [place] [address] Social History Tobacco Use Types Packs/Day Years Used Date Smoking Tobacco: Never Assessed Sex and Gender Information Value Date Recorded Sex Assigned at Not on file Legal Sex Male 3:12 AM TENONER OPERATOR Gender Identity Not on file Sexual Orientation Not on file documented as of this encounter Plan of Treatment Not on file documented as of this encounter Visit Diagnoses Not on filedocumented in this encounter Care Teams Hat Marker Relationship Specialty Start Date End Date Dolly Lima MD PCP - General 01/26/03 documented as of this encounter
--- OUTSIDE RECORDS SUMMARY | 2024-07-10 18:20 | XMS_ITS | Encounter Summary ---
Author Organization [facility] Address [address] [place] [address] Care Team Providers Care Blue Leather Setter Name Role Phone Dolly Lima MD Primary Care Provider [phone] Encounter Details Date Type Department Care Team (Late st Contact Info) Description 08/08/2000 Outpatient Historical [facility] Pediatrics 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
--- OUTSIDE RECORDS SUMMARY | 2024-07-10 18:20 | XMS_ITS | Encounter Summary ---
Author Organization [facility] Address [address] [place] [address] Care Team Providers Care Art Gallery Director Name Role Phone Dolly Lima MD Primary Care Provider [phone] Encounter Details Date Type Department Care Team (Late st Contact Info) Description 12/09/2000 Outpatient Historical [facility] Pediatrics [address] [address] Ip, Hector Holbrook MD NO ADDRESS ON FILE Social History Tobacco Use Types Packs/Day Years Used Date Smoking Tobacco: Never Assessed Sex and Gender Information Value Date Recorded Sex Assigned at Not on file 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
[2024-07-10 18:24] LABS: Hematocrit 45.9 % (40.0-54.0); Mean Corpuscular HGB Conc 32.7 g/dL (32-36); Mean Corpuscular Hemoglobin 28.7 pg (27.0-31.0); Mean Corpuscular Volume 87.8 fL (78.0-102.0); Mean Platelet Volume 10.8 fl (8.7-11.0); Platelet Count Result 201 K/mm3 (150-420); Red Blood Count 5.23 M/mm3 (4.70-6.10); Red Cell Distribution Width 12.1 % (11.6-14.4); White Blood Count 6.8 K/mm3 (4.8-10.8)
[2024-07-10] MEDS: MORPHINE SULFATE (*CRX) 2 MG/ML INJ 4 MG IV PUSH (18:29)
[2024-07-10] MEDS: ONDANSETRON INJ 4 MG/2 ML VIAL IV PUSH (18:30)
[2024-07-10 18:32] LABS: Band Neutrophils Percent 15 % (0-6); Basophils Percent Manual 0 % (0-1); Eosinophils Percent Manual 0 % (1-6); Lymphocytes Absolute Manual 1.22 K/mm3 (1.1-4.5); Lymphocytes Percent Manual 18 % (18-44); Monocytes Absolute Manual 0.74 K/mm3 (0.1-0.90); Monocytes Percent Manual 11 % (3-9); Neutrophils Absolute Manual 4.82 K/mm3 (1.3-6.7); Neutrophils Percent Manual 56 % (46-73); Total Cells Counted 100
[2024-07-10 18:33] LABS: Platelet Estimate Adequate (Adequate)
[2024-07-10 18:36] LABS: Lactic Acid Reflex 0.9 mmol/L (0.4-2.0)
[2024-07-10 18:45] LABS: Alanine Aminotransferase 35 U/L (16-63); Albumin Level 3.7 g/dL (3.4-5.0); Alkaline Phosphatase 66 U/L (46-116); Anion Gap 11 mmol/L (4-12); Aspartate Amino Transferase 20 U/L (15-37); Bilirubin,Total 0.8 mg/dL (0.00-1.00); Blood Urea Nitrogen 18 mg/dL (7-18); Calcium 8.3 mg/dL (8.5-10.1); Carbon Dioxide 26 mmol/L (21-32); Chloride 104 mmol/L (98-108); Estimated CRCL calculation 83 ml/min; Estimated Glomerular Filt Rate > 60; Glucose 98 mg/dL (70-99); Osmolality Calculated 293 mOsm/kg (285-295); Potassium 3.5 mmol/L (3.5-5.1); Sodium 141 mmol/L (136-145); Total Protein 7.4 g/dL (6.4-8.2)
[2024-07-10 18:48] LABS: Lipase 28 U/L (16-77)
--- NOTE | 2024-07-10 18:58 | PC.NURSE ---
report to hua flores
[2024-07-10 19:07] VITALS: BP 126/83; PULSE 100; RESP 20; O2SAT 97
[2024-07-10 19:32] VITALS: BP 128/75; PULSE 89; RESP 18; TEMP 36.6; O2SAT 99
== END 2024-07-10 19:32 | disposition home or self-care (01) ==
PROVIDERS: Emergency Provider Emergency Medicine; PCP Internal Medicine
DX: K59.00 Constipation, unspecified (principal)
CPT/HCPCS: 36415; 74177; 80053; 83605; 83690; 85025; 96374; 96375; 99284; J2270; J2405; Q9967